=== PATIENT | female | born 1935 | race Caucasian/White ===

== ENCOUNTER → 2017-10-19 | Outpatient (CLI) | payer MEDICARE ==
[~2017-10-19] MED LIST: ASPIR-LOW81 MG PO; ASPIRIN325 PO; D3 + K2 DOTS 11 EACH PO; ECONOPRED PLUS10 M1 OPHTHALMIC; FISHOIL; FISHOIL PO; FLOXIN OTI0.3 %/5 M1 OPHTHALMIC; FOLBIC RF TABL1 EACH PO; HAIR, SKIN & N1 EAC1 PO; HYDROCODON-ACE1 EAC7 PO; HYDROCODONE-AP1 EAC6 PO; KETOROLAC 0.5% E5 ML OPHTHALMIC; KLOR-CON 1010 MEQ PO; LISINOPRIL20 MG PO; MECLIZINE 25 MG25 M1 PO; MELOXICAM7.5 MG PO; MICROZIDE12.5 MG PO; MULTIVITAMIN W1 EAC5 PO; NEXIUM40 MG PO; NIACIN SR 250250 MG PO; NOLVADEX20 MG PO; ONDANSETRON HCL4 M2 PO; PRADAXA150 MG PO; SORINE 80 MG TA80 M1 PO; SOTALOL80 MG PO; TOPROL XL25 MG PO; TRAMADOL 50 MG50 MG PO; TRIAMTERENE-HC1 EAC2 PO; ULTRAM 50MG TAB50 MG PO; ZOFRAN ODT4 MG PO
== END ==
LOC: M.RAD 11:24
DX: M81.0 Age-related osteoporosis without current pathological fracture (principal); M25.552 Pain in left hip; M25.562 Pain in left knee; S32.010S Wedge compression fracture of first lumbar vertebra, sequela; Z88.5 Allergy status to narcotic agent; Z88.0 Allergy status to penicillin; X58.XXXS Exposure to other specified factors, sequela

== ENCOUNTER 2017-10-20 09:44 | Inpatient (IN) | payer MEDICARE ==
[~2017-10-20] VITALS: Ht 149.9 cm; Wt 54.4 kg
[~2017-10-20 09:44] MED LIST changes: -MICROZIDE12.5 MG PO; -NEXIUM40 MG PO; -ULTRAM 50MG TAB50 MG PO
[2017-10-20 09:55] VITALS: BP 146/58
[2017-10-20] MEDS ORDERED: MICROZIDE12.5 MG PO (10:00)
[2017-10-20] MEDS ORDERED: ULTRAM 50MG TAB50 MG PO (10:01)
[2017-10-20 10:27] LABS: ABSOLUTE EOSINOPHILS 0.1 thou/uL (0.0-0.7); ABSOLUTE LYMPHOCYTES 1.9 thou/uL (0.8-5.3); ABSOLUTE MONOCYTES 0.5 thou/uL (0.0-1.2); ABSOLUTE NEUTROPHILS 7.7 thou/uL (1.6-8.1); BASOPHILS 0.5 %; EOSINOPHILS 0.5 %; HEMATOCRIT 25.6 % (37.0-47.0); HEMOGLOBIN 8.7 gm/dL (12.0-15.0); LYMPHOCYTES 18.8 %; MCH 30.3 pg (26.0-34.0); MCV 89.3 fL (80.0-100.0); MONOCYTES 5.2 %; MPV 8.6 fl. (7.2-11.1); NUCLEATED RBCS 0 /100WBC; PLATELET COUNT* 194 thou/uL (150-400); RBC 2.87 mil/uL (4.20-5.00); RDW-CV 13.4 % (10.5-14.5); WBC 10.2 thou/uL (4.0-11.0)
[2017-10-20 10:32] LABS: URINE BILIRUBIN NEGATIVE (Negative); URINE BLOOD NEGATIVE (Negative); URINE CLARITY CLEAR; URINE COLOR YELLOW; URINE GLUCOSE-RANDOM NEGATIVE (Negative); URINE KETONES NEGATIVE (Negative); URINE LEUKOCYTES-REFLEX NEGATIVE (Negative); URINE NITRITE-REFLEX NEGATIVE (Negative); URINE PROTEIN NEGATIVE (Negative); URINE SPECIFIC GRAVITY 1.015 (1.005-1.030); URINE UROBILINOGEN 0.2 E.U./dl (0.2-1.0)
[2017-10-20 10:35] LABS: ANION GAP 5 mmol/L (7-16); BUN 45 mg/dL (7-18); CALCIUM 9.1 mg/dL (8.5-10.1); CHLORIDE 100 mmol/L (98-107); CO2 30 mmol/L (21-32); CREATININE 0.9 mg/dL (0.6-1.3); GLUCOSE 125 mg/dL (70-99); POTASSIUM 3.9 mmol/L (3.5-5.1); SODIUM 135 mmol/L (136-145)
[2017-10-20 10:47] LABS: ALBUMIN 3.1 g/dL (3.4-5.0); ALKALINE PHOSPHATASE 45 U/L (46-116); LIPASE 161 U/L (73-393); NT-PRO BRAIN NAT PEPTIDE 103 pg/mL (<300); SGOT 15 U/L (15-37); SGPT 16 U/L (30-65); TOTAL BILIRUBIN 0.2 mg/dL (<0.1-1.0); TOTAL PROTEIN 6.4 g/dL (6.4-8.2); TROPONIN-I LEVEL <0.06 ng/mL (<0.06)
[2017-10-20 12:18] VITALS: BP 133/76
[2017-10-20 12:30] VITALS: BP 125/52
[2017-10-20 15:25] VITALS: BP 119/56; BP 122/96; BP 132/49; BP 92/64
[2017-10-20 16:00] VITALS: BP 161/62
--- NOTE | 2017-10-20 18:01 | NUR ---
pt arrived to room 224 at approx 1240, pt oriented to room and staff. pt denies pain, states she had a bm this am that was black, pt sats 100% on RA, VSS. Admission Hx and assesment done as charted. Pt NPO for GI consult Recieved orders for 1 unit PRBC's. Spoke to Dr Lopez, orders for EGD tomorrow recieved. pt updated on plan of care. was able to tolerate clear liquids for dinner. fall precatuions in place, call light in reach. pt uses it appropriatly. will continue with plan of care .
[2017-10-20 19:43] LABS: HEMATOCRIT 24.3 % (37.0-47.0); HEMOGLOBIN 8.3 gm/dL (12.0-15.0); MCH 30.9 pg (26.0-34.0); MCHC 34.3 g/dL (28.0-37.0); MPV 8.8 fl. (7.2-11.1); RBC 2.7 mil/uL (4.20-5.00); RDW-CV 13.5 % (10.5-14.5); WBC 8.1 thou/uL (4.0-11.0)
[2017-10-20 20:00] VITALS: BP 122/56
[2017-10-21] VITALS (9 sets, daily range): BP systolic 92–147; BP diastolic 44–62
[2017-10-21 05:30] LABS: HEMATOCRIT 20.6 % (37.0-47.0); HEMOGLOBIN 7.1 gm/dL (12.0-15.0); MCH 30.6 pg (26.0-34.0); MCHC 34.3 g/dL (28.0-37.0); MCV 89.4 fL (80.0-100.0); MPV 8.9 fl. (7.2-11.1); RBC 2.31 mil/uL (4.20-5.00); RDW-CV 13.6 % (10.5-14.5); WBC 9.5 thou/uL (4.0-11.0)
[2017-10-21 05:42] LABS: CALCIUM 8.1 mg/dL (8.5-10.1); CREATININE 0.7 mg/dL (0.6-1.3); MAGNESIUM 1.6 mg/dL (1.8-2.4); POTASSIUM 3.8 mmol/L (3.5-5.1)
--- NOTE | 2017-10-21 06:13 | NUR ---
PATIENT RESTED IN BED, PATIENT DID NOT SHOW SIGNS OF DISTRESS. HGB IS 7.1 AND MAG IS LOW, DOCTOR NOTIFIED. PATIENT EGD TODAY, NO ACUTE CHANGES. FALL PRECAUTIONS IN PLACE, BED ALARM ON, HOURLY ROUNDING OBSERVED, CALL LIGHT WITHIN REACH.
--- NOTE | 2017-10-21 07:07 | NUR ---
DOCTOR CALLED RECEIVED AND ORDER 1 UNIT OF BLOOD AND MAG PROTOCOL, SEE ORDERS.
--- NOTE | 2017-10-21 08:00 | NUR ---
ASSUMED PT. CARE AND RECEIVED REPORT AT 0730. PT A/OX4, VSS, MONITOR ON TRACING SR. PT. C/O MINOR ABDOMINAL PAIN, STATES BETTER THIS MORNING THAN DURING THE NIGHT. ON RA @ 98%. PT. LOOKS PALE IN COLOR. AWAITING 1 UNIT OF PRBC TO BE READY FOR INFUSION. PT. REPORTS DARK TARRY STOOL THIS MORNING. FULL ASSESSMENT COMPLETED, REFER TO CHARTING. CALL LIGHT IN REACH, WILL CONTINUE WITH PLAN OF CARE.
--- NOTE | 2017-10-21 11:15 | NUR ---
PT. RETURNED FROM EGD, TOLERATED WELL. C/O GENERAL ABD. PAIN. PT. GIVEN ZOFRAN IV, PO PAIN MED AND A.M. MEDS. TOLERATED FULL LIQUID DIET WELL. 1 UNIT PRBC STARTED PER ORDERS. CONTINUE WITH PROTONIX GTT PER ORDERS.
--- NOTE | 2017-10-21 15:58 | NUR ---
MET WITH PT TO DISCUSS HOME SITUATION/DC PLANNING. PT LIVES ALONE, HAS SUPPORTIVE PIERCING SPECIALIST AND HIS ACROSS THE STREET. SHE ALSO HAS A FRIEND/CAROLINA SULLIVAN WHO IS SUPPORTIVE. PT HAS NO CHILDREN BUT HAS STEP-CHILDREN WHO ARE SUPPORTIVE. SHE ALSO HAS 2 BROTHERS. PT STATES SHE IS INDEPENDENT WITH ADLS, USES [facility] AND HAS 2 BSC THAT SHE USES IN SHOWER AND BY HER BED. SHE HAS HAD HH WITH [facility] HOME IN THE PAST. SHE DOESN'T HAVE A DPOA. GAVE ED AND INFO. SHE STATES SHE THINKS SHE WOULD LIKE HER FRIEND CAROLINA TO BE HER DPOA BUT WANTS TO TALK IT OVER WITH HER AND HAVE HER ASSIST WITH FILLING IT OUT. PT PLANS TO RETURN HOME AT DC. WILL FOLLOW
--- NOTE | 2017-10-21 17:22 | EKG ---
[place] [address] ELECTROCARDIOGRAM REPORT Name: SOMMER TO Room: [address] ADM IN M.R.#: [id number] Admission: 10/20/17 Attend Phys: Ish Stephen, Discharge: Date of : 33 Report #: [id number] THIS REPORT FOR: //name// [facility] ED Test Date: 2017-10-20 Test Time: 10:18:51 Pat Name: SOMMER TO Department: Room: [facility] Gender: F Whiting Can Worker: Anthony ORDOÑEZ : 1935 Requested By: Matthew Garcia Order Number: [id number] MD: Nakul Carlson Measurements Intervals [place] Rate: 69 P: 25 [place]: 189 QRS: -45 QRSD: 103 T: 67 QT: 422 QTc: 452 Interpretive Statements Sinus rhythm Left anterior fascicular block Compared to ECG 04/15/2015 23:47:42 Left anterior fascicular block now present Left-axis deviation no longer present Electronically Signed On 10-21-2017 17:22:10 CDT by Nakul Carlson [email or web address] <ELECTRONICALLY SIGNED> By: Nakul Carlson MD, FACC 10/21/17 1722 1018 1018 Nakul Carlson MD, FAC /EPI
--- NOTE | 2017-10-21 19:04 | NUR ---
PT. TOLERATED BLOOD TRANSFUSION WELL. HAS NOT HAD ANY FURTHER STOOLS THIS SHIFT. CONTINUES ON FULL LIQUID DIET, DENIES NAUSEA OR PAIN CURRENTLY. PT. WITH MULTIPLE FRIEND VISITORS TODAY. HOURLY ROUNDING COMPLETED THROUGH OUT THE DAY FOR PT. SAFETY. FALL PRECAUTIONS REMAIN IN PLACE.
[2017-10-22] VITALS (7 sets, daily range): BP systolic 107–168; BP diastolic 33–61
--- NOTE | 2017-10-22 03:13 | NUR ---
ASSUMED PT CARE AT 19;15 RECEIVE REPORT FROM NURSE. PT IS ALERT AWAKE ORIENTED X 4. APPEARS PALE IN CALOR. SKIN IS COOL. ASSESSEMNT PERFORMED, REFER TO CHART. VITAL SIGNS WITHIN NORMAL LIMIT. NO COMPLAIN OF PAIN AT THIS TIME. SINUS RYTHM ON THE MONITOR. PT HAD A SMALL BOWEL MVNT AT AROUND 0130 AM. BOWEL APPEARS DARK WITH STRINGE OF BLOOD. CBC ORDERED IN THE MORNING. NO ACUTE BLEEDING NOTICED. PT WANTS TO GET SOME REST. NO DIZINESS, SKIN IS JUST PALE AND COOL TO TOUCH. PROTONIX DRIP INFUSING AT 20CC/HR NS INFUSING WELL. WILL CONTINUE TO MONITOR.,
[2017-10-22 05:21] LABS: ABSOLUTE BASOPHILS 0.1 thou/uL (0.0-0.2); ABSOLUTE EOSINOPHILS 0.3 thou/uL (0.0-0.7); ABSOLUTE LYMPHOCYTES 2.1 thou/uL (0.8-5.3); ABSOLUTE MONOCYTES 0.7 thou/uL (0.0-1.2); ABSOLUTE NEUTROPHILS 9.1 thou/uL (1.6-8.1); BASOPHILS 0.4 %; EOSINOPHILS 2.6 %; HEMATOCRIT 20.4 % (37.0-47.0); LYMPHOCYTES 16.9 %; MCHC 33.8 g/dL (28.0-37.0); MCV 91.7 fL (80.0-100.0); MONOCYTES 5.6 %; MPV 8.9 fl. (7.2-11.1); NUCLEATED RBCS 0 /100WBC; PLATELET COUNT* 118 thou/uL (150-400); POLYS 74.5 %; RBC 2.22 mil/uL (4.20-5.00); RDW-CV 13.8 % (10.5-14.5); WBC 12.2 thou/uL (4.0-11.0)
[2017-10-22 05:26] LABS: HEMOGLOBIN 6.9 gm/dL (12.0-15.0)
[2017-10-22 05:48] LABS: CALCIUM 8.1 mg/dL (8.5-10.1); CREATININE 0.7 mg/dL (0.6-1.3); MAGNESIUM 1.7 mg/dL (1.8-2.4); POTASSIUM 3.9 mmol/L (3.5-5.1)
--- NOTE | 2017-10-22 08:10 | NUR ---
ASSUMED PT. CARE AND RECEIVED REPORT AT 0730. PT A/OX4, VSS, MONITOR ON TRACING SR. PT. DENIES CURRENT PAIN. REPORTS SOB WITH EXERTION AND WEAKNESS. ON RA @ 95%. FULL ASSESSMENT COMPLETED, REFER TO CHARTING. PT. AWARE OF PLAN FOR 2 UNITS OF BLOOD TODAY. CALL LIGHT IN REACH, WILL CONTINUE WITH PLAN OF CARE.
--- NOTE | 2017-10-22 18:49 | NUR ---
PT. TOLERATED BLOOD TRANSFUSIONS WITHOUT DIFFICULTY. HAS HAD 1 LARGE BOWEL MOVEMENT THAT WAS BLACK AND TARRY AND MULTIPLE SMALL OTHERS TODAY. NO NEW COMPLAINTS. [place] [facility] [place] AT THIS TIME. HOURLY ROUNDING COMPLETED THROUGH OUT THE DAY FOR PT. SAFETY.
[2017-10-23] VITALS: BP 133/53
--- NOTE | 2017-10-23 02:07 | NUR ---
ASSUMED PT CARE AT 19:15 PT IS ALERT AWAKE ORIENTED X 4 VITAL SIGNS WITHIN NORMAL LIMIT. SINUS ISAAC ON THE MONITOR HR STAYS IN THE HIGH 50S. NO COMPLAIN OF PAIN AT THIS MOMENT PT STATED THAT SHE HAS GOT SOME TRAMADOL EARLIER AND SHE HAS NOT BEEN IN PAIN SINCE THEN. IV FLUID IS INFUSING IN LEFT FOREARM LINE AND PROTONIX DRIP IS ON AT 20CC/HR. ASSESSMENT PERFOREMED. REFER TO CHART. SKIN IS WARMER AND OF APPROPRIATE COLOR. PT IS CURRETNLY RESITNG IN BED MADE COMFORTABLE. CALL LIGHT AT REACH.. WILL CONTINUE TO MONITOR.
[2017-10-23 04:12] VITALS: BP 127/48
[2017-10-23 05:01] LABS: HEMATOCRIT 24.5 % (37.0-47.0); HEMOGLOBIN 8.5 gm/dL (12.0-15.0); MCH 31.5 pg (26.0-34.0); MCHC 34.7 g/dL (28.0-37.0); MPV 8.9 fl. (7.2-11.1); RBC 2.7 mil/uL (4.20-5.00); RDW-CV 13.8 % (10.5-14.5); WBC 8.4 thou/uL (4.0-11.0)
[2017-10-23 05:16] LABS: ALBUMIN 2.3 g/dL (3.4-5.0); CALCIUM 7.7 mg/dL (8.5-10.1); CREATININE 0.6 mg/dL (0.6-1.3); POTASSIUM 3.9 mmol/L (3.5-5.1); TOTAL BILIRUBIN 0.3 mg/dL (<0.1-1.0); TOTAL PROTEIN 4.5 g/dL (6.4-8.2)
[2017-10-23 07:45] VITALS: BP 146/66
--- NOTE | 2017-10-23 07:45 | NUR ---
ASSUMED PT. CARE AND RECEIVED REPORT AT 0730. PT A/OX4, VSS, MONITOR ON TRACING SR. PT. STATES SHE HAS ACHINESS IN HIPS DUE TO LAYING DOWN, HOWEVER DENIES FURTHER PAIN. ON RA @ 99%. FULL ASSESSMENT COMPLETED, REFER TO JUDY. PT. ASSISTED TO RECLINER. STATES SHE IF FEELING BETTER TODAY, NOT 100%, BUT BETTER. CALL LIGHT IN REACH, WILL CONTINUE WITH PLAN OF CARE.
--- NOTE | 2017-10-23 11:38 | NUR ---
CONTINUE TO FOLLOW. PT UP IN CHAIR, STATES MAY BE ABLE TO GO HOME TOMORROW. PT DENIES NEEDS AT THIS TIME. SHE IS STILL TALKING WITH HER FRIEND/KATHYRN ABOUT FILLING OUT DPOA. STATES SHE MAY GO TO A CREATIVE STRATEGIST. EXPLAINED TO HER THAT IF SHE INDEED WANTS HER FRIEND TO BE HER DPOA, WOULD NEED TO HAVE THE FORM FILLED OUT OTHERWISE HER FRIEND WOULD NOT BE ABLE TO MAKE HER DECISIONS, WOULD FALL TO FAMILY. SHE VOICED UNDERSTANDING. WILL FOLLOW
[2017-10-23 11:55] VITALS: BP 131/75
--- NOTE | 2017-10-23 15:01 | CON ---
[address] [address] CONSULTATION Name: SOMMER TO Room: [address] IN .R.#: [id number] Admission: 10/20/17 Attend Phys: Ish Stephen, Discharge: Date of : 33 Report #: [id number] THIS REPORT FOR: //name// CC: Oksana Stephen DATE OF SERVICE: 10/21/2017 REASON FOR CONSULT: Anemia and melenic stool. HISTORY OF PRESENT ILLNESS: This is an 82-year-old female who takes a full dose aspirin for history of AFib and presents with a couple of days of melenic stool and anemia. The patient also complains of shortness of air for a month. She denies GERD or dysphagia, but complains of epigastric pain both in mid and left upper quadrant. PAST MEDICAL HISTORY: Significant for history of breast cancer, status post right mastectomy, hypertension, gallbladder disease, status post cholecystectomy, appendectomy, history of AFib and on full dose aspirin, back surgery, left knee surgery. ALLERGIES: SIGNIFICANT TO PENICILLIN AND CODEINE. SOCIAL HISTORY: The patient lives at home. Denies tobacco or alcohol use. FAMILY HISTORY: Significant for brother having history of peptic ulcer disease. PHYSICAL EXAMINATION: VITAL SIGNS: Reveals blood pressure of 147/49, respirations 16, pulse 76, temperature 98.8. LUNGS: Clear. CARDIOVASCULAR: Regular rate. ABDOMEN: Soft, tender to palpation in the epigastric region. Bowel sounds are positive. NEUROLOGIC: The patient is alert, oriented x 3. LABORATORY DATA: Reveal sodium of 142, potassium 3.8, BUN is 34, creatinine 0.7, AST is 15, ALT 16 with alkaline phosphatase of 45, total bilirubin is 0.2. WBC is 9.5 with hemoglobin of 7.1, down from 8.3 on admission. Platelet is 142. IMAGING: Chest x-ray was obtained, which showed no acute process. ASSESSMENT AND PLAN: The patient with anemia, melenic stool and history of taking full dose aspirin. We will perform upper endoscopy to rule out gastroduodenal ulcer versus gastritis. If this was negative, we will consider a colonoscopy since the patient has not had a colonoscopy for the past [place] [address] CONSULTATION Name: SOMMER TO Room: [address] [place] [facility]#: [id number] Admission: 10/20/17 Attend Phys: Ish Stephen, Discharge: Date of : 34 Report #: [id number] Meanwhile, the patient is on Protonix drip, which we will continue. We will make further recommendation once her upper endoscopy is complete. <ELECTRONICALLY SIGNED> By: Porter Lopez MD 10/23/17 1501 0855 1200Farid Nellie Lopez MD /nt
[2017-10-23 15:16] VITALS: BP 125/50
[2017-10-23 16:08] LABS: HEMOGLOBIN 9.7 gm/dL (12.0-15.0)
--- NOTE | 2017-10-23 19:03 | NUR ---
PT. PROGRESSING TOWARDS GOALS. UP AD HAYLEY IN ROOM AND AMBULATED HALLS WELL. PT. REPORTS 2 STOOLS TODAY, REMAIN BLACK AND TARRY. ANTICIPATE DC TOMORROW IF LABS REMAIN STABLE. PT. STATES SHE IS FEELING MUCH BETTER TODAY. HOURLY ROUNDING COMPLETED THROUGH OUT THE DAY FOR PATIENT SAFETY.
[2017-10-23 20:00] VITALS: BP 156/55
[2017-10-24 00:13] VITALS: BP 140/61
--- NOTE | 2017-10-24 01:30 | NUR ---
ASSUMED PT CARE AT 1930. PATIENT IS ALERT AWAKE ORIENTED X 4 RESTING IN BED. CONCERN ABOUT DISCHARGE PLANNING STATED THAT SHE WOULD CONSIDER HOME HEALTH CARE SINCE SHE LIVES ON HER OWN AND IS SCARED THAT SHE WILL START BLLEDING AGAIN. CASE MANAGEMENT CONSULT ORDERED BY DAY SHIFT NURSE. BESIDE THAT NO COMPLAIN OF PAIN. ASSESSMENT PERFOREMED. REFER TO CHART. IV LINE IS PATENT SALINE LOCK. MEDICATIONS WERE ADMINISTERED PT WAS MADE COMFORTABLE WARM BLANKET PROVIDED . PT IS CURRENTLY SLEEPING.
[2017-10-24 03:36] VITALS: BP 150/55
[2017-10-24 05:47] LABS: HEMATOCRIT 26.2 % (37.0-47.0); HEMOGLOBIN 9.2 gm/dL (12.0-15.0)
[2017-10-24 08:00] VITALS: BP 150/73
[2017-10-24] MEDS ORDERED: NEXIUM40 MG PO (10:02)
[2017-10-24 10:19] VITALS: BP 150/55
--- NOTE | 2017-10-24 10:27 | NUR ---
ORDERS NOTED FOR DC HOME WITH HH. MET WITH PT, SHE WOULD LIKE TO USE [facility] AT HOME AND HAVE 'MARYY'. CALLED AND FAXED DC ORDERS TO [facility]. PT DENIES OTHER NEEDS
--- NOTE | 2017-10-24 11:25 | NUR ---
ASSUMED CARE OF PATIENT THIS AM AT 0730. PATIENT IS ALERT AND ORIENTED X 4. SHE C/O GENERALIZED PAIN TODAY. PATIENT MEDICATED FOR PAIN X 1 PO. PATIENT HAS BEEN UP IN THR ROOM INDEPENDANTLY. TELE SHOWS SR. SEALS IN TO ROUND AND DISCHARGE ORDERS WRITTEN. SALINE LOCK AND TELE MONITOR DISCONTINUED.
== END 2017-10-24 12:17 | disposition home health service (06) | DRG 813 ==
LOC: M.ERS 09:44 → M.2W 11:17 → M.TBA-ER 11:17 → M.2W 12:31
PROVIDERS: Emergency Medicine; Internal Medicine; Internal Medicine Gastroenterology; ADMIT Family Medicine
PROC: 30233N1 Transfusion of Nonautologous Red Blood Cells into Peripheral Vein, Percutaneous Approach (ICD-10-PCS; 2017-10-20)
PROC: 0DJ08ZZ Inspection of Upper Intestinal Tract, Via Natural or Artificial Opening Endoscopic (ICD-10-PCS; principal; 2017-10-21)
DX: D68.32 Hemorrhagic disorder due to extrinsic circulating anticoagulants (principal); K26.0 Acute duodenal ulcer with hemorrhage; D62 Acute posthemorrhagic anemia; I48.91 Unspecified atrial fibrillation; K44.9 Diaphragmatic hernia without obstruction or gangrene; K25.9 Gastric ulcer, unspecified as acute or chronic, without hemorrhage or perforation; G89.29 Other chronic pain; Z90.11 Acquired absence of right breast and nipple; Z90.710 Acquired absence of both cervix and uterus; Z87.891 Personal history of nicotine dependence; Z90.49 Acquired absence of other specified parts of digestive tract; Z79.82 Long term (current) use of aspirin; Z85.3 Personal history of malignant neoplasm of breast; Z79.899 Other long term (current) drug therapy; Z88.0 Allergy status to penicillin; Z88.5 Allergy status to narcotic agent; Z83.79 Family history of other diseases of the digestive system; Z82.49 Family history of ischemic heart disease and other diseases of the circulatory system

== ENCOUNTER → 2017-12-28 | Outpatient (CLI) | payer MEDICARE ==
[~2017-12-28] MED LIST changes: +BENTYL 10 MG CA10 M1 PO; +GLUCOSAMINE-MS1 EAC2 PO; +MICROZIDE12.5 MG PO; +NEXIUM40 MG PO; +PROTONIX40 M1 PO; +TUMS PO; +ULTRAM 50MG TAB50 MG PO; +UNICOMPLEX M TA1 TA1 PO
== END ==
LOC: M.LAB 02:34
DX: Z01.812 Encounter for preprocedural laboratory examination (principal)

== ENCOUNTER 2018-05-29 09:40 | Inpatient (IN) | payer MEDICARE ==
[~2018-05-29] VITALS: Ht 149.9 cm; Wt 51.7 kg
--- NOTE | ~2018-05-29 | PROC ---
[address] [address] PROCEDURE REPORT Name: SOMMER TO Room: [address] IN M.R.#: [id number] Admission: 05/29/18 Attend Phys: Aleah Perez Discharge: 05/30/18 Date of : 33 Report #: [id number] THIS REPORT FOR: //name// For GI report, please see the Provation report in Perceptive 7 content. By: 1401Medical Records Staff PETER /SAVI
--- NOTE | ~2018-05-29 | CON ---
[address] [address] CONSULTATION Name: SOMMER TO Room: [address] IN M.R.#: [id number] Admission: 05/29/18 Attend Phys: Aleah Perez Discharge: 05/30/18 Date of : 34 Report #: [id number] THIS REPORT FOR: //name// CC: Oksana Adelaida Madrigal DATE OF SERVICE: 05/30/2018 HISTORY OF PRESENT ILLNESS: This is a pleasant 82-year-old female with past medical history of hypertension, a-fib, cholecystectomy and appendectomy presenting with abdominal pain. The patient reports that the abdominal pain started yesterday, was severe, 10/10 in intensity, located in the upper abdomen. The patient does not recollect any particular aggravating or alleviating factors. The pain persisted for several hours, which prompted the hospital visit. The pain has since subsided and the patient is currently pain free. She reports associated nausea during the episode of pain, but denies any vomiting. The patient denies any fevers, chills, hematemesis, hematochezia or difficulty swallowing. PAST MEDICAL HISTORY: The patient reports history of a-fib, hypertension and irritable bowel syndrome. PAST SURGICAL HISTORY: The patient had right-sided mastectomy, had hysterectomy, cholecystectomy and appendectomy. SOCIAL HISTORY: The patient denies recreational drug use or alcohol use, quit smoking, but she has a 59-fxvd-gldy history of smoking. FAMILY HISTORY: There is no family history of colorectal or gastric cancer. REVIEW OF SYSTEMS: A comprehensive 10-point review of systems is negative except for what was mentioned in the HPI. PHYSICAL EXAMINATION: VITAL SIGNS: Temperature 36.6, pulse rate 64, respirations 16, blood pressure 137/55. GENERAL: The patient is alert, awake, oriented x 3. HEENT: Pupils are equal, round, reactive to light and accommodation. Mucous membranes are moist. There is no congestion. LUNGS: Clear to auscultation bilaterally. CARDIOVASCULAR: Rate and rhythm regular, S1, S2 present. ABDOMEN: Soft. There is no distention, guarding or rigidity. No tenderness. EXTREMITIES: Warm, well perfused. No edema. NEUROLOGIC: There is no focal neurological deficit. SKIN: [place] [address] CONSULTATION Name: SOMMER TO Room: [address]#: [id number] Admission: 05/29/18 Attend Phys: Aleah Perez Discharge: 05/30/18 Date of : 33 Report #: [id number] LABORATORY DATA: Hemoglobin 13.0, hematocrit 38.7, platelet count 184, WBC count 6.9. Sodium 131, potassium 3.9, chloride 95, BUN 13, creatinine 0.9, total bilirubin 0.3, AST 22, ALT 26, alkaline phosphatase 54, lipase 157. CT abdomen and pelvis did not demonstrate any evidence of inflammation or pancreatitis. ASSESSMENT AND PLAN: This is a very pleasant 82-year-old female with an episode of acute onset abdominal pain that is located in the epigastric region. The pain lasted for several hours before subsiding on its own. We will proceed with EGD to rule out peptic ulcer disease. Other recommendations will be based on results of EGD. By: 1833 2344Patrick Bagley MD /nt
[~2018-05-29 09:40] MED LIST changes: -BENTYL 10 MG CA10 M1 PO; -GLUCOSAMINE-MS1 EAC2 PO; -PROTONIX40 M1 PO; -TUMS PO; -UNICOMPLEX M TA1 TA1 PO
[2018-05-29 09:42] VITALS: BP 160/61
[2018-05-29] MEDS ORDERED: KLOR-CON 1010 MEQ PO (09:49)
[2018-05-29] MEDS ORDERED: TUMS PO (09:49)
[2018-05-29] MEDS ORDERED: UNICOMPLEX M TA1 TA1 PO (09:50)
[2018-05-29] MEDS ORDERED: GLUCOSAMINE-MS1 EAC2 PO (09:50)
[2018-05-29 10:14] LABS: ABSOLUTE EOSINOPHILS 0.1 thou/uL (0.0-0.7); ABSOLUTE LYMPHOCYTES 1.6 thou/uL (0.8-5.3); ABSOLUTE MONOCYTES 0.4 thou/uL (0.0-1.2); ABSOLUTE NEUTROPHILS 6.2 thou/uL (1.6-8.1); BASOPHILS 0.5 %; EOSINOPHILS 1.4 %; HEMATOCRIT 39.1 % (37.0-47.0); HEMOGLOBIN 13.1 gm/dL (12.0-15.0); MCH 29.7 pg (26.0-34.0); MCHC 33.5 g/dL (28.0-37.0); MCV 88.8 fL (80.0-100.0); MONOCYTES 4.8 %; MPV 7.3 fl. (7.2-11.1); NUCLEATED RBCS 0 /100WBC; PLATELET COUNT* 201 thou/uL (150-400); POLYS 74.3 %; RDW-CV 13.8 % (10.5-14.5); WBC 8.4 thou/uL (4.0-11.0)
[2018-05-29 10:24] LABS: ANION GAP 9 mmol/L (7-16); BUN 13 mg/dL (7-18); CALCIUM 9.1 mg/dL (8.5-10.1); CHLORIDE 95 mmol/L (98-107); CO2 27 mmol/L (21-32); CREATININE 0.9 mg/dL (0.6-1.3); GLUCOSE 111 mg/dL (70-99); POTASSIUM 3.9 mmol/L (3.5-5.1); SODIUM 131 mmol/L (136-145)
[2018-05-29 10:25] LABS: APTT 28.7 Seconds (25.0-31.3)
[2018-05-29 10:41] LABS: ALBUMIN 3.7 g/dL (3.4-5.0); ALKALINE PHOSPHATASE 54 U/L (46-116); CK-MB MASS 2.1 ng/mL (<0.5-3.6); LIPASE 157 U/L (73-393); MAGNESIUM 1.8 mg/dL (1.8-2.4); NT-PRO BRAIN NAT PEPTIDE 121 pg/mL (<300); SGOT 22 U/L (15-37); SGPT 26 U/L (30-65); TOTAL BILIRUBIN 0.3 mg/dL (<0.1-1.0); TOTAL PROTEIN 7.5 g/dL (6.4-8.2); TROPONIN-I LEVEL <0.06 ng/mL (<0.06)
[2018-05-29 14:14] LABS: URINE BILIRUBIN NEGATIVE (Negative); URINE BLOOD TRACE (Negative); URINE CLARITY CLEAR; URINE COLOR YELLOW; URINE GLUCOSE-RANDOM NEGATIVE (Negative); URINE KETONES NEGATIVE (Negative); URINE LEUKOCYTES-REFLEX NEGATIVE (Negative); URINE NITRITE-REFLEX NEGATIVE (Negative); URINE PROTEIN NEGATIVE (Negative); URINE SPECIFIC GRAVITY <= 1.005 (1.005-1.030); URINE UROBILINOGEN 0.2 E.U./dl (0.2-1.0)
[2018-05-29 14:22] LABS: URINE RBC 0-2 Rare /HPF (0-2)
[2018-05-29 16:00] VITALS: BP 137/55
--- NOTE | 2018-05-29 16:47 | EKG ---
[place] [address] ELECTROCARDIOGRAM REPORT Name: SOMMER TO Room: [address] ADM IN M.R.#: [id number] Admission: 05/29/18 Attend Phys: Aleah Perez Discharge: Date of : 33 Report #: [id number] THIS REPORT FOR: //name// [facility] ED Test Date: 2018-05-29 Test Time: 09:44:07 Pat Name: SOMMER TO Department: Room: [facility] Gender: F Taker Down: Kei RAUSCH : 1935 Requested By: Stanislaw Appiah Order Number: [id number] MD: Nakul Carlson Measurements Intervals [place] Rate: 62 P: 46 ME: 190 QRS: -46 QRSD: 109 T: 26 QT: 426 QTc: 433 Interpretive Statements Sinus rhythm Left anterior fascicular block Abnormal R-wave progression, late transition Probable left ventricular hypertrophy Baseline wander in lead(s) V4 Compared to ECG 10/20/2017 10:18:51 No significant changes Electronically Signed On 05-29-2018 16:47:08 FLOAT TENDER by Nakul Carlson [email or web address] <ELECTRONICALLY SIGNED> By: Nakul Carlson MD, FACC 05/29/18 1647 0944 0944 Nakul Carlson MD, FACC /EPI
[2018-05-30 08:10] VITALS: BP 174/65
[2018-05-30 10:04] VITALS: BP 137/55
[2018-05-30 10:22] LABS: HEMATOCRIT 38.7 % (37.0-47.0); MCH 29.9 pg (26.0-34.0); MCHC 33.5 g/dL (28.0-37.0); MCV 89.1 fL (80.0-100.0); MPV 7.2 fl. (7.2-11.1); RBC 4.34 mil/uL (4.20-5.00); RDW-CV 13.6 % (10.5-14.5); WBC 6.9 thou/uL (4.0-11.0)
[2018-05-30 11:36] VITALS: BP 137/55
[2018-05-30 12:45] VITALS: BP 137/55
[2018-05-30] MEDS ORDERED: BENTYL 10 MG CA10 M1 PO (12:50)
[2018-05-30] MEDS ORDERED: PROTONIX40 M1 PO (12:57)
== END 2018-05-30 13:10 | disposition still patient (30) | DRG 392 ==
LOC: M.ERS 09:40 → M.ORTHSURG 12:55 → M.TBA-ER 12:55 → M.ORTHSURG 15:01
PROVIDERS: Family Medicine; Internal Medicine Gastroenterology; ADMIT Internal Medicine
PROC: 0DJ08ZZ Inspection of Upper Intestinal Tract, Via Natural or Artificial Opening Endoscopic (ICD-10-PCS; principal; 2018-05-30)
DX: K29.70 Gastritis, unspecified, without bleeding (principal); E87.1 Hypo-osmolality and hyponatremia; I48.91 Unspecified atrial fibrillation; I10 Essential (primary) hypertension; K58.9 Irritable bowel syndrome, unspecified; K20.9 Esophagitis, unspecified; Z90.49 Acquired absence of other specified parts of digestive tract; Z90.710 Acquired absence of both cervix and uterus; Z90.11 Acquired absence of right breast and nipple; Z79.899 Other long term (current) drug therapy; Z88.0 Allergy status to penicillin; Z87.891 Personal history of nicotine dependence; Z87.440 Personal history of urinary (tract) infections; Z87.19 Personal history of other diseases of the digestive system; Z88.5 Allergy status to narcotic agent

== ENCOUNTER → 2018-11-16 | Outpatient (CLI) | payer MEDICARE ==
[~2018-11-16] MED LIST changes: +BENTYL 10 MG CA10 M1 PO; +GLUCOSAMINE-MS1 EAC2 PO; +PROTONIX40 M1 PO; +TUMS PO; +UNICOMPLEX M TA1 TA1 PO
== END ==
LOC: M.RAD 10:25
DX: Z12.31 Encounter for screening mammogram for malignant neoplasm of breast (principal)

== ENCOUNTER 2020-02-20 17:34 | Emergency (ER) | payer MEDICARE ==
[~2020-02-20] VITALS: Ht 149.9 cm; Wt 52.2 kg
[2020-02-20] MEDS ORDERED: ELIQUIS2.5 MG PO (17:51)
[2020-02-20 18:41] LABS: ABSOLUTE BASOPHILS 0.1 thou/uL (0.0-0.2); ABSOLUTE EOSINOPHILS 0.2 thou/uL (0.0-0.7); ABSOLUTE LYMPHOCYTES 2.1 thou/uL (0.8-5.3); ABSOLUTE MONOCYTES 0.6 thou/uL (0.0-1.2); ABSOLUTE NEUTROPHILS 4.6 thou/uL (1.6-8.1); BASOPHILS 0.7 %; EOSINOPHILS 2.4 %; HEMATOCRIT 40.7 % (37.0-47.0); MCH 30.2 pg (26.0-34.0); MCHC 34.5 g/dL (28.0-37.0); MCV 87.4 fL (80.0-100.0); MONOCYTES 8.2 %; NUCLEATED RBCS 0 /100WBC; PLATELET COUNT* 204 thou/uL (150-400); POLYS 60.7 %; RBC 4.65 mil/uL (4.20-5.00); RDW-CV 13.6 % (10.5-14.5); WBC 7.6 thou/uL (4.0-11.0)
[2020-02-20 18:49] LABS: APTT 26.5 Seconds (25.0-31.3); PROTIME 10.6 Seconds (9.20-11.50)
[2020-02-20 18:50] LABS: CALCIUM 8.7 mg/dL (8.5-10.1); CREATININE 0.9 mg/dL (0.6-1.3); POTASSIUM 4.7 mmol/L (3.5-5.1)
[2020-02-20 19:00] LABS: ALBUMIN 3.6 g/dL (3.4-5.0); MAGNESIUM 1.9 mg/dL (1.8-2.4); TOTAL BILIRUBIN 0.3 mg/dL (<0.1-1.0); TOTAL PROTEIN 7.6 g/dL (6.4-8.2)
[2020-02-20 22:00] LABS: URINE BILIRUBIN NEGATIVE (Negative); URINE BLOOD TRACE (Negative); URINE CLARITY CLEAR; URINE COLOR YELLOW; URINE GLUCOSE-RANDOM NEGATIVE (Negative); URINE KETONES NEGATIVE (Negative); URINE LEUKOCYTES-REFLEX NEGATIVE (Negative); URINE NITRITE-REFLEX NEGATIVE (Negative); URINE PROTEIN NEGATIVE (Negative); URINE UROBILINOGEN 0.2 E.U./dl (0.2-1.0)
[2020-02-20 22:10] VITALS: BP 158/70
--- NOTE | 2020-02-21 14:01 | EKG ---
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: [facility] : 1935 Requested By: Dalia Lara Order Number: [id number] MD: Chilango Flannery Measurements Intervals [place] Rate: 63 P: 51 [place]: 191 QRS: -55 QRSD: 115 T: 11 QT: 442 QTc: 453 Interpretive Statements Sinus rhythm LAD, consider left anterior fascicular block Left ventricular hypertrophy Compared to ECG 05/29/2018 09:44:07 No significant changes Electronically Signed On 02-21-2020 14:01:22 CDT by Chilango Flannery [email or web address] <ELECTRONICALLY SIGNED> By: Chilango Flannery MD, [facility] 02/21/20 1401 1744 1744 Chilango Flannery MD, [facility] /EPI
--- NOTE | 2020-02-21 14:02 | EKG ---
[place] [address] ELECTROCARDIOGRAM REPORT Name: SOMMER TO Room: [facility]#: [id number] Admission: 02/20/20 Attend Phys: Discharge: 02/20/20 Date of : 33 Date of Service: 02/20/20 180 Report #: [id number] THIS REPORT FOR: //name// 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: Yeyo Clements : 1935 Requested By: Morteza Esquivel Order Number: [id number] MD: Chilango Flannery Measurements Intervals [place] Rate: 61 P: 49 [place]: 185 QRS: -51 QRSD: 108 T: -4 QT: 470 QTc: 474 Interpretive Statements Sinus rhythm Left anterior hemiblock Possible left ventricular hypertrophy Compared to ECG 05/29/2018 09:44:07 No significant change Electronically Signed On 02-21-2020 14:02:15 CDT by Chilango Flannery [email or web address] <ELECTRONICALLY SIGNED> By: Chilango Flannery MD, [facility] 02/21/20 1402 180 1803 Chilango Flannery MD, [facility] /EPI
== END 2020-02-20 22:10 | disposition home or self-care (01) ==
LOC: M.ERS 17:34
PROVIDERS: Emergency Medicine; Emergency Medicine Emergency Medical Services
DX: I48.91 Unspecified atrial fibrillation (principal); M79.89 Other specified soft tissue disorders; Z88.5 Allergy status to narcotic agent; Z88.0 Allergy status to penicillin; Z90.49 Acquired absence of other specified parts of digestive tract; Z90.710 Acquired absence of both cervix and uterus; Z90.11 Acquired absence of right breast and nipple

== ENCOUNTER → 2020-04-03 | Outpatient (CLI) | payer MEDICARE ==
[~2020-04-03] MED LIST changes: +ELIQUIS2.5 MG PO
--- NOTE | 2020-04-08 14:54 | CARDNUC ---
[place] [address] CARDIAC NUCLEAR IMAGING REPORT Name: SOMMER TO Room: [facility]#: [id number] Admission: 04/03/20 Attend Phys: Wendy Tracy RN Discharge: Date of : 33 Date of Service: 04/08/20 1454 Report #: [id number] THIS REPORT FOR: cc: Oksana Son Linda J. DO Park,Grady Pedroza MD ~ APPROVED REPORT Study performed: 04/03/2020 12:06:45 Indication: Chest pain Patient Location: Out-Patient Stress Tech: Lindsey Silvestre Stress Nurse: Sherrill June RN Ht: 4 ft 10 in Wt: 118 lbs BSA: 1.46 m2 BMI: 24.65 Medical History Medical History: HTN, Hyperlipidemia Medications: losartan, sotalol, amlodipine, hctz Allergies: sulfa, codeine, hydrocodone, penilillin Cardiac Risk Factors: Age, Past Smoker, HTN, Hyperlipidemia Exercise History: Sedentary Resting Data Rest SPECT myocardial perfusion imaging was performed in supine position 30 minutes following the intravenous injection of 9.7 mCi of Tc-99m Sestamibi. Time of rest injection: 10:20 The images were gated to evaluate regional wall motion and calculate left ventricular ejection fraction. Administration Route: IV Administration Site: Right Wrist Pharmacologic Stress Pharmacologic stress test was performed by injecting Regadenoson 0.4 mg IV push over 10-15 seconds immediately followed by the intravenous injection of 30.1 mCi of Tc-99m Sestamibi. Time of stress injection: 11:55 Administration Route: IV Administration Site: Right Wrist Heart Rate at time of stress injection: 75 bpm. Gated Stress SPECT was performed 45 [place] [address] CARDIAC NUCLEAR IMAGING REPORT Name: SOMMER TO Room: [facility]#: [id number] Admission: 04/03/20 Attend Phys: Wendy Tracy RN Discharge: Date of : 33 Date of Service: 04/08/20 1454 Report #: [id number]. The images were gated to evaluate regional wall motion and calculate left ventricular ejection fraction. Stress Test Details Stress Test: Pharmacologic stress testing performed using 0.4 mg of regadenoson per 5 mL given IV over 10 seconds. Reason for pharmacologic stress test: physical limitation. HR Max Heart Rate (APMHR): 135 bpm Resting HR: 55 bpm Target HR (85% APMHR): 114 bpm Max HR Achieved: 78 bpm % of APMHR: 57 Recovery HR: 73 bpm BP Resting BP: 206/84 mmHg Max BP: 188/84 mmHg Recovery BP: 193/82 mmHg ECG Resting ECG: Sinus Rhythm Stress ECG: Sinus Rhythm ST Change: Non-ischemic Clinical Reason for Termination: Completed protocol, Maximal effort, ST changes Nurse Comments pt uses cane to walk. is not aboe to walk on treadmill Study Quality Study: Good Study Data Post stress, the left ventricular ejection was 65%.. Perfusion Normal left ventricular perfusion. Normal perfusion on both the stress and rest images. Wall Motion Normal left ventricular wall [place] [address] CARDIAC NUCLEAR IMAGING REPORT Name: SOMMER TO Room: [facility]#: [id number] Admission: 04/03/20 Attend Phys: Wendy Tracy RN Discharge: Date of : 33 Date of Service: 04/08/201453 Report #: [id number] ECG Findings: negative for ischemia Clinical Findings: non-diagnostic Nuclear Findings: negative for ischemia Exercise Capacity: not assessed Left Ventricular Function: normal Risk Study: low This study is of low probability for inducible ischemia or prior infarct. Normal global and segmental LV systolic function. <ELECTRONICALLY SIGNED> By: Grady Vásquez MD 04/08/201453 53 53 Grady Vásquez MD /INF
== END ==
LOC: M.NUC 03-19 14:58 → M.CRD 03-30 09:00 → M.NUC 03-30 10:00 → M.CRD 09:00 → M.NUC 09:33
PROVIDERS: ATTEND Registered Nurse
DX: R07.9 Chest pain, unspecified (principal)

== ENCOUNTER → 2020-04-22 | Outpatient (CLI) | payer MEDICARE ==
--- NOTE | 2020-04-22 14:19 | 2DMMODE ---
[place] [address] 2 D/M-MODE ECHOCARDIOGRAM Name: WALTER TOZEYNEP Bullard Room: [facility]#: [id number] Admission: 04/22/20 Attend Phys: Alice Hart, Discharge: Date of : 33 Date of Service: 04/22/20 1419 Report #: [id number] THIS REPORT FOR: cc: Oksana Son,Oksana Lawrence,Ermias Tan MD [facility] ~ APPROVED REPORT Study performed: 04/22/2020 12:59:22 EXAM: Comprehensive 2D, Doppler, and color-flow Echocardiogram Patient Location: Out-Patient BSA: 1.44 HR: 58 bpm BP: 145/68 mmHg Other Information Study Quality: Excellent Indications Dyspnea 2D Dimensions IVSd: 11.35 (7-11mm) LVOT Diam: 19.58 (18-24mm) LVDd: 40.48 mm PWd: 11.21 (7-11mm) Ascending Ao: 32.70 (22-36mm) LVDs: 25.17 (25-40mm) Aortic Root: 28.03 mm Volumes Left Atrial Volume (Systole) LA ESV Index: 13.70 mL/m2 Aortic Valve AoV Peak Donte.: 1.11 m/s AO Peak Gr.: 4.95 mmHg LVOT Max P.31 mmHg AO Mean Gr.: 2.46 mmHg LVOT Mean P.93 mmHg LVOT Max V: 0.76 m/s AO V2 VTI: 25.21 cm LVOT Mean V: 0.43 m/s MARIN (VTI): 2.58 cm2 LVOT V1 VTI: 21.63 cm Mitral Valve E/A Ratio: 0.63 [place] [address] 2 D/M-MODE ECHOCARDIOGRAM Name: SOMMER TO Room: [facility]#: [id number] Admission: 04/22/20 Attend Phys: Alice Hart, Discharge: Date of : 33 Date of Service: 04/22/20 1419 Report #: [id number] MV Decel. Time: 290.07 ms MV E Max Donte.: 0.55 m/s MV PHT: 84.12 ms MVA (PHT): 2.62 cm2 TDI E/Lateral E': 9.17 E/Medial E': 7.86 Medial E' Donte.: 0.07 m/s Lateral E' Donte.: 0.06 m/s Pulmonary Valve PV Peak Donte.: 0.87 m/s PV Peak Gr.: 3.05 mmHg Tricuspid Valve RAP Estimate: 5.00 mmHg TR Peak Gr.: 21.04 mmHg RVSP: 26.04 mmHg PA Pressure: 26.04 mmHg Left Ventricle The left ventricle is normal size. There is normal LV segmental wall motion. Mild concentric left ventricular hypertrophy. Left ventricular systolic function is normal. The left ventricular ejection fraction is within the normal range. LVEF is 55-60%. Grade I - abnormal relaxation pattern. Right Ventricle The right ventricle is normal size. The right ventricular systolic function is normal. Atria The left atrium size is normal. The right atrium size is normal. Aortic Valve The aortic valve is normal in structure. Mild aortic regurgitation. There is no aortic valvular stenosis. Mitral Valve The mitral valve is normal in structure. Mild mitral regurgitation. No evidence of mitral valve stenosis. Tricuspid Valve The tricuspid valve is normal in structure. Mild tricuspid regurgitation[place] [address] 2 D/M-MODE ECHOCARDIOGRAM Name: YOUSUFSOMMER Bullard Room: [facility]#: [id number] Admission: 04/22/20 Attend Phys: Alice Hart, Discharge: Date of : 33 Date of Service: 04/22/20 1419 Report #: [id number] The pulmonary valve is normal in structure. Mild pulmonic regurgitation. Great Vessels The aortic root is normal in size. IVC is normal in size and collapses >50% with inspiration. Pericardium There is no pericardial effusion. <Conclusion> Mild concentric left ventricular hypertrophy. LVEF is 55-60%. Mild aortic regurgitation. Mild mitral regurgitation. <ELECTRONICALLY SIGNED> By: Ermias Salcido MD, FACC 04/22/201418 18 18 Ermias Salcido MD, FACC /INF
== END ==
LOC: M.CRD 04-21 11:00
PROVIDERS: ATTEND Nurse Practitioner
DX: I08.8 Other rheumatic multiple valve diseases (principal)

== ENCOUNTER 2020-08-23 08:01 | Inpatient (IN) | payer MEDICARE ==
[~2020-08-23] VITALS: Ht 147.3 cm; Wt 60.8 kg
[2020-08-23 08:12] VITALS: BP 139/116
[2020-08-23] MEDS ORDERED: HYDROCHLOROTH12.5 M2 PO (08:18)
[2020-08-23] MEDS ORDERED: LISINOPRIL20 MG PO (08:18)
[2020-08-23] MEDS ORDERED: TOPROL XL100 MG PO (08:19)
[2020-08-23 08:20] LABS: URINE BILIRUBIN NEGATIVE (Negative); URINE BLOOD NEGATIVE (Negative); URINE CLARITY CLEAR; URINE COLOR YELLOW; URINE GLUCOSE-RANDOM NEGATIVE (Negative); URINE KETONES NEGATIVE (Negative); URINE LEUKOCYTES-REFLEX NEGATIVE (Negative); URINE NITRITE-REFLEX NEGATIVE (Negative); URINE PROTEIN NEGATIVE (Negative); URINE UROBILINOGEN 0.2 E.U./dl (0.2-1.0)
[2020-08-23 09:09] LABS: ABSOLUTE EOSINOPHILS 0.2 thou/uL (0.0-0.7); ABSOLUTE LYMPHOCYTES 1.4 thou/uL (0.8-5.3); ABSOLUTE MONOCYTES 0.3 thou/uL (0.0-1.2); ABSOLUTE NEUTROPHILS 2.7 thou/uL (1.6-8.1); EOSINOPHILS 5.2 %; HEMOGLOBIN 13.1 gm/dL (12.0-15.0); LYMPHOCYTES 30.5 %; MCHC 33.6 g/dL (28.0-37.0); RDW-CV 13.4 % (10.5-14.5); WBC 4.7 thou/uL (4.0-11.0)
[2020-08-23 09:11] LABS: BASOPHILS 0.8 %; MCH 28.7 pg (26.0-34.0); MCV 85.5 fL (80.0-100.0); MONOCYTES 6.8 %; MPV 7.4 fl. (7.2-11.1); NUCLEATED RBCS 0 /100WBC; PLATELET COUNT* 185 thou/uL (150-400); POLYS 56.7 %; RBC 4.56 mil/uL (4.20-5.00)
[2020-08-23 09:16] LABS: CALCIUM 9.1 mg/dL (8.5-10.1); CREATININE 0.9 mg/dL (0.6-1.3); POTASSIUM 3.4 mmol/L (3.5-5.1)
[2020-08-23 09:20] LABS: ALBUMIN 3.5 g/dL (3.4-5.0); TOTAL BILIRUBIN 0.4 mg/dL (<0.1-1.0); TOTAL PROTEIN 7.9 g/dL (6.4-8.2)
[2020-08-23 13:24] VITALS: BP 142/69
[2020-08-23 13:57] VITALS: BP 172/63
--- NOTE | 2020-08-23 14:14 | NUR ---
PT ADMITTED WITH RIGHT HIP PAIN. PT ORIENTED TO ROOM. PAIN MEDS GIVEN ORDERED, PT CONCERNED IT MIGHT MAKE HER LOOPY. TOLD PT WE WOULD DO THE SMALLEST DOSE ORDERED AND CHECK ON HER TO MAKE SURE SHE FELT OK. FALL RISK PRECAUTIONS IN PLACE.
[2020-08-23 16:57] VITALS: BP 150/57
--- NOTE | 2020-08-23 17:01 | NUR ---
PT REMAINED ALERT AND ORIENTED. PT C/O MUSCLE SPASMS, MEDS GIVEN ORDERED. PHYSICIAN NOTIFIED OF PT PAIN, MUSCULE RELAXER ORDERED AND GIVEN. PT EDUCTAED ON USING CALL LIGHT WHEN NEEDING MORE PAIN MEDS. HOURLY ROUNDING COMPLETED.
[2020-08-23 20:45] VITALS: BP 142/60
[2020-08-24 05:06] LABS: CALCIUM 9.5 mg/dL (8.5-10.1); MAGNESIUM 2.2 mg/dL (1.8-2.4); POTASSIUM 3.9 mmol/L (3.5-5.1)
--- NOTE | 2020-08-24 06:53 | NUR ---
PATIENT HAS SLEPT WELL THROUGHOUT THE NIGHT. VSS ON RA. MEDICATIONS GIVEN ORDERED AND CHARTED. NO C/O PAIN. ASSESSMENT CHARTED. IV IN LEFT AC-SL. FALL PRECAUTIONS IN PLACE AND HOURLY ROUNDS MADE. WILL CONTINUE WITH PLAN OF CARE AND NURSING TO MONITOR.
[2020-08-24 08:24] VITALS: BP 160/76
--- NOTE | 2020-08-24 13:49 | EKG ---
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: : [id number] Requested By: Morteza Esquivel Order Number: [id number] MD: Chilango Flannery Measurements Intervals [place] Rate: 64 P: 52 DC: 192 QRS: -48 QRSD: 110 T: 83 QT: 433 QTc: 447 Interpretive Statements Sinus rhythm Left anterior hemiblock Probable left ventricular hypertrophy Compared to ECG 02/20/2020 18:03:45 no change noted Electronically Signed On 08-24-2020 13:49:01 TANK BUILDER AND ERECTOR by Chilango Flannery [email or web address] <ELECTRONICALLY SIGNED> By: Chilango Flannery MD, [facility] 08/24/20 1349 [id number] Chilango Flannery MD, [facility] /EPI
--- NOTE | 2020-08-24 15:02 | NUR ---
PT RESTING,NO COMPLAINTS AT THIS TIME. VSS ON RA. NOTHING FURTHER AT THIS TIME.CLWR.[email or web address].
[2020-08-24 16:24] VITALS: BP 138/81
--- NOTE | 2020-08-24 17:00 | NUR ---
VISITED WITH PT. SHE SAID SHE LIVES ALONE AND HAS SINCE HER 20 YRS AGO. SHE HAS SOME GOOD FRIENDS THAT WILL HELP HER NEEDED. 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 THEY TAKE HER ON ERRANDS, TO GET GROCERIES, ETC. SHE ALSO HAS FRIENDS THAT CAN COME HELP HER IF NEEDED. ANABEL PORTILLO AND MISS AMIN. HER STEPCHILDREN LIVE IN [facility] AND ONLY COME UP ABOUT ONCE A YEAR. THEY HAVE ASKED HER TO COME LIVE WITH THEM BUT SHE DOES NOT WANT TO BE A BURDEN ON THEM. SHE HAS A WALKER SHE USES. ALSO HAS A BSC. SHE PLANS TO RETURN HOME AT DISCHARGE AND WOULD BE INTERESTED IN HOMEHEALTH.
[2020-08-24 21:15] VITALS: BP 147/57
--- NOTE | 2020-08-25 05:08 | NUR ---
PT ALERT AND ORIENTED, ROOM AIR. NO REQUEST FOR ANY PAIN MEDICATION, NO REPORTS OF DISCOMFORT EXCEPT WHEN SHE MOVES SO SHE REMAINED BEDREST. SHE REPORTED THAT SHE DID HAVE A BM EARLIER THIS EVENING. SHE SAYS SHE WILL TRY TO STAY STILL, DID NOT WANT PAIN MEDICATION. SHE IS MOVING HER LEGS/EXTENDING THEM IN BED TO KEEP FROM LAYING STILL FOR TOO LONG. SHE IS A VERY ACTIVE PATIENT AND IS ATTEMPTING TO NOT NEED PAIN MEDICATION AT THIS TIME.
[2020-08-25 07:35] VITALS: BP 138/109
[2020-08-25 16:15] VITALS: BP 137/62
--- NOTE | 2020-08-25 16:42 | NUR ---
PT ROUNDS: PT HAS UNCONTROLLED PX AND IS HYPERTENSIVE.
--- NOTE | 2020-08-25 17:29 | NUR ---
PT REMAINED ALERT AND ORIENTED. PT RESTING IN BED. PAIN MEDS GIVEN ORDERED. PT UP STAND BY TO BATHROOM. FALL RISK PRECAUTIONS IN PLACE. HOURLY ROUNDING COMPLETED.
[2020-08-25 20:25] VITALS: BP 151/48
--- NOTE | 2020-08-26 05:10 | NUR ---
PT ALERT AND ORIENTED, STANDBY TO RESTROOM. SHE REQUESTED NO PAIN MEDS, REPORTED NO DISCOMFORT. SHE HAS DONE WELL OVERNIGHT. UP MOVING AROUND WELL.
[2020-08-26] MEDS ORDERED: CELEBREX 200 M200 M1 PO (08:10)
[2020-08-26] MEDS ORDERED: PREDNISONE 20 M20 MG PO (08:10)
[2020-08-26] MEDS ORDERED: LIDOPATCH1 EACH TOP (08:10)
[2020-08-26 09:05] VITALS: BP 151/58
--- NOTE | 2020-08-26 09:05 | NUR ---
Pt discharging to home today. CM [facility]. Pt states that she will need to contact a neighbor to provide transport. No further needs.
[2020-08-26 10:12] VITALS: BP 151/58
--- NOTE | 2020-08-26 10:24 | NUR ---
THIS NURSE AGREES WITH ASSESSMENT
[2020-08-26 10:28] VITALS: BP 151/58
[2020-08-26 10:34] VITALS: BP 151/58
[2020-08-26 12:10] VITALS: BP 151/58
--- NOTE | 2020-08-26 14:03 | NUR ---
PT WAS DISCHARGED HOME WITH ALL BELONGINGS, ACCOMPANIED BY FRIEND. PT DENIES PAIN ON DISCHARGE. PT HAS A GOOD UNDERSTANDING OF ALL PAIN MEDICATIONS AND DISCHARGE ORDERS.
== END 2020-08-26 12:00 | disposition home health service (06) | DRG 552 ==
LOC: M.ERS 08:01 → M.TBA-ER 11:38 → M.3W 13:26
PROVIDERS: Emergency Medicine Emergency Medical Services; Internal Medicine; ADMIT Family Medicine; ATTEND Family Medicine
DX: M54.16 Radiculopathy, lumbar region (principal); M48.55XA Collapsed vertebra, not elsewhere classified, thoracolumbar region, initial encounter for fracture; G89.29 Other chronic pain; M47.816 Spondylosis without myelopathy or radiculopathy, lumbar region; E87.6 Hypokalemia; I10 Essential (primary) hypertension; I48.91 Unspecified atrial fibrillation; M81.0 Age-related osteoporosis without current pathological fracture; Z20.822 Contact with and (suspected) exposure to COVID-19; Z79.899 Other long term (current) drug therapy; Z88.0 Allergy status to penicillin; Z88.5 Allergy status to narcotic agent; Z90.11 Acquired absence of right breast and nipple; Z90.710 Acquired absence of both cervix and uterus; Z90.49 Acquired absence of other specified parts of digestive tract

== ENCOUNTER 2020-10-10 20:49 | Inpatient (IN) | payer MEDICARE ==
[~2020-10-10] VITALS: Ht 147.3 cm; Wt 54.4 kg
[~2020-10-10 20:49] MED LIST changes: +CELEBREX 200 M200 M1 PO; +DOXYCYCLINE 10100 M2 PO; +HYDROCHLOROTH12.5 M2 PO; +LIDOPATCH1 EACH TOP; +PREDNISONE 20 M20 MG PO; +TOPROL XL100 MG PO
[2020-10-10] MEDS ORDERED: FISH OIL 1,0001 EAC9 PO (21:05)
[2020-10-10 21:44] LABS: ABSOLUTE EOSINOPHILS 0.3 thou/uL (0.0-0.7); ABSOLUTE LYMPHOCYTES 2.1 thou/uL (0.8-5.3); ABSOLUTE MONOCYTES 0.7 thou/uL (0.0-1.2); BASOPHILS 0.4 %; EOSINOPHILS 3.2 %; HEMOGLOBIN 13.6 gm/dL (12.0-15.0); LYMPHOCYTES 25.9 %; MCH 28.6 pg (26.0-34.0); MCHC 33.1 g/dL (28.0-37.0); MCV 86.4 fL (80.0-100.0); MONOCYTES 8.1 %; MPV 7.6 fl. (7.2-11.1); NUCLEATED RBCS 0 /100WBC; PLATELET COUNT* 222 thou/uL (150-400); POLYS 62.4 %; RBC 4.75 mil/uL (4.20-5.00); RDW-CV 13.4 % (10.5-14.5); WBC 8.1 thou/uL (4.0-11.0)
[2020-10-10 21:51] LABS: CALCIUM 9.3 mg/dL (8.5-10.1); CREATININE 0.8 mg/dL (0.6-1.3); POTASSIUM 3.3 mmol/L (3.5-5.1)
[2020-10-10 21:55] LABS: ALBUMIN 3.6 g/dL (3.4-5.0); TOTAL BILIRUBIN 0.3 mg/dL (<0.1-1.0); TOTAL PROTEIN 7.9 g/dL (6.4-8.2)
[2020-10-10 22:10] VITALS: BP 163/89
[2020-10-10 22:45] VITALS: BP 151/61
--- NOTE | 2020-10-11 05:16 | NUR ---
PT ARRIVED TO THE UNIT FROM THE ER AT 2230. A&O X 4. VSS ON RA. PT USES CANE, UP TO THE BR WITH SBA. FALL PRECAUTION IN PLACE. LLE RED, SWOLLEN, WARM TO TOUCH. HYDROCODONE GIVEN FOR PAIN. IV ABX GIVEN ORDERED. IVF INFUISING. CALL LIGHT WITHIN REACH. WILL CONTINUE TO MONITOR.
[2020-10-11 12:09] VITALS: BP 114/75
[2020-10-11 16:27] VITALS: BP 141/67
--- NOTE | 2020-10-11 18:44 | NUR ---
PT A&Ox4. VITALS STABLE. IV PATENT. TOLERATING MEALS. UP WITH STB ASSIST USING CANE. ON RA. MINIMAL PAIN TO LEFT LEG, DENIED PAIN MEDS. DENIED NAUSEA. FALL PRECAUTIONS IN PLACE. CALL LIGHT WITHIN REACH. WILL CONTINUE TO MONITOR.
[2020-10-11 19:40] VITALS: BP 166/72
[2020-10-12 04:16] LABS: ABSOLUTE EOSINOPHILS 0.3 thou/uL (0.0-0.7); ABSOLUTE LYMPHOCYTES 2.3 thou/uL (0.8-5.3); ABSOLUTE MONOCYTES 0.5 thou/uL (0.0-1.2); ABSOLUTE NEUTROPHILS 3.2 thou/uL (1.6-8.1); BASOPHILS 0.7 %; EOSINOPHILS 4.2 %; HEMATOCRIT 37.4 % (37.0-47.0); HEMOGLOBIN 12.6 gm/dL (12.0-15.0); LYMPHOCYTES 36.7 %; MCH 28.8 pg (26.0-34.0); MCHC 33.8 g/dL (28.0-37.0); MCV 85.3 fL (80.0-100.0); MONOCYTES 8.2 %; MPV 8.3 fl. (7.2-11.1); NUCLEATED RBCS 0 /100WBC; PLATELET COUNT* 193 thou/uL (150-400); POLYS 50.2 %; RBC 4.39 mil/uL (4.20-5.00); RDW-CV 13.8 % (10.5-14.5); WBC 6.4 thou/uL (4.0-11.0)
[2020-10-12 04:47] LABS: CREATININE 0.8 mg/dL (0.6-1.3); POTASSIUM 3.1 mmol/L (3.5-5.1)
[2020-10-12 04:48] LABS: CALCIUM 9.2 mg/dL (8.5-10.1)
--- NOTE | 2020-10-12 05:50 | NUR ---
PATIENT HAS REMAINED ALERT AND ORIENTED X 4 THROUGHOUT THE SHIFT AND RESTING QUIETLY ON HOURLY ROUNDS. UP TO BR WITH CANE, CGA. LLE WOUND CURRENTLY OPEN TO AIR. DRESSING ON SKIN TOO PAINFUL. MEDICATED X 1 FOR PAIN TO GOOD EFFECT. SLIGHT OOZING AND SLOUGHING OF SKIN NOTED. PATIENT REQUESTED NASAL SPRAY AND BENADRYL AT HS FOR STUFFY NOSE. PHYSICIAN MADE AWARE AND MEDS ORDERED AND PROVIDED. FALL PRECAUTIONS IN PLACE. CONTINUE TO MONITOR.
[2020-10-12 08:12] VITALS: BP 159/68
[2020-10-12 09:00] VITALS: BP 159/68
--- NOTE | 2020-10-12 09:39 | NUR ---
WOUND NURSE: PATIENT SEEN TO ADDRESS TRAUMATIC WOUND ON THE LEFT LATERAL LOWER LEG MEASURING 0.6 X 0.5 X 0,4 CM WITH 0.2 CM UNDERMINING FROM 12 TO 12 O'CLOCK. CONTAINS RED, NONGRANLATING TISSUE IN THE WOUND BED. THERE IS A SMALL AMOUNT OF PINK [place]QUE DRAINAGE AND SLIGHT PERIWOUND REDNESS ALONG WITH INDURATION. WOUND IS TENDER TO TOUCH. CLEANSED WITH SALINE AND GAUZE. PLACED A WICK INTO WOUND USING AQUACEL AG, THEN COVERD WITH ADDITIONAL SQUARE OF AQUACEL AG UNDER A BORDERED FOAM DRESSING. PLAN TO CHANGE DRESSING EVERY OTHER DAY AND PRN. PATIENT SCHEDULED TO BE SEEN BY DR. JAMIR COTTER ON THURSDAY 10/19 AT 10AM. PATIENT REPORTS SHE LIVES IN [place] AND HER ASSOCIATE PROFESSOR OF ART HISTORY IS ABLE TO BRING HER. PATIENT REPORTING THAT SHE FELL ON 10/01 INTO HER FLOWER BED WHRE A PLANT INJURED HER LEG (YUCCA PLANT).
[2020-10-12 10:03] VITALS: BP 159/68
--- NOTE | 2020-10-12 13:14 | NUR ---
THIS NURSE AGREES WITH ASSESSMENT
--- NOTE | 2020-10-12 13:46 | NUR ---
Pt is A&O. Resides at home alone. Independent. Pt uses a walker for mobility. Pt has a shower chair. Supportive friends and neighbors that check on her and provide transportation. Hx of [facility]. No hx of SNF. Goal is home at dc, Pt wanting ANA CM to fax initial referral to [facility]. Anticipate dc tomorrow, wound care to see today. Surgery consult pending. [facility] f:[phone]
[2020-10-12 17:09] VITALS: BP 149/69
--- NOTE | 2020-10-12 17:11 | NUR ---
PATIENT RESTING IN BED. ABSCESS TO LEFT LOWER LEG WITH REDNESS AND SWELLING OPEN TO AIR. BRUISING TO NECK. SALINE LOCK TO LEFT FOREARM, PATENT, DRESSING C/D/I. C/O OF BACK PAIN, LIDOCAINE PATCH PLACED. NO QUESTIONS OR CONCERNS VOICED. WILL CONTINUE TO MONITOR.
[2020-10-12 20:00] VITALS: BP 129/69
[2020-10-13 04:18] LABS: CREATININE 0.7 mg/dL (0.6-1.3); POTASSIUM 3.5 mmol/L (3.5-5.1); TOTAL BILIRUBIN 0.3 mg/dL (<0.1-1.0)
--- NOTE | 2020-10-13 04:39 | NUR ---
VSS ON RA. MEDS GIVEN ORDERED. DRESSING TO LLE C/D/I. UP TO THE BR WITH CANE WITH SBA. NO C/O PAIN. PT SLEPT MOST OF THE NIGHT. CALL LIGHT WITHIN REACH. WILL CONTINUE TO MONITOR.
[2020-10-13 04:42] LABS: ABSOLUTE EOSINOPHILS 0.3 thou/uL (0.0-0.7); ABSOLUTE LYMPHOCYTES 2.4 thou/uL (0.8-5.3); ABSOLUTE MONOCYTES 0.5 thou/uL (0.0-1.2); ABSOLUTE NEUTROPHILS 3.9 thou/uL (1.6-8.1); BASOPHILS 0.6 %; EOSINOPHILS 4.1 %; HEMATOCRIT 38.6 % (37.0-47.0); LYMPHOCYTES 33.8 %; MCHC 33.6 g/dL (28.0-37.0); MCV 86.2 fL (80.0-100.0); MONOCYTES 6.9 %; MPV 8.1 fl. (7.2-11.1); NUCLEATED RBCS 0 /100WBC; PLATELET COUNT* 205 thou/uL (150-400); POLYS 54.6 %; RBC 4.48 mil/uL (4.20-5.00); WBC 7.1 thou/uL (4.0-11.0)
[2020-10-13 09:00] VITALS: BP 167/67
[2020-10-13] MEDS ORDERED: CLEOCIN HCL300 MG PO (09:36)
[2020-10-13 10:21] VITALS: BP 159/68
--- NOTE | 2020-10-13 10:57 | NUR ---
THIS NURSE AGREES WITH ASSESSMENT
[2020-10-13 11:04] VITALS: BP 159/68
--- NOTE | 2020-10-13 11:58 | NUR ---
PATIENT DISCHARGED HOME. DISCHARGE INSTRUCTIONS REVIEWED WITH PATIENT, ACKNOWLEDGE SHE UNDERSTOOD AND HAD NO QUESTIONS. IV DC'D AT THIS TIME. COTTON AND BANDAID ON SITE, PATIENT TOLERATED WITHOUT DIFFICULTIES. FRIEND TO TAKE HER HOME. PATIENT WHEELCHAIRED TO WAITING CAR WITH PERSONAL BELONGINGS.
--- NOTE | 2020-10-13 12:23 | NUR ---
Pt discharged to home today, faxed HH orders to [facility]
== END 2020-10-13 11:38 | disposition home health service (06) | DRG 603 ==
LOC: M.ERS 20:49 → M.ORTHSURG 21:35 → M.TBA-ER 21:35 → M.ORTHSURG 22:20
PROVIDERS: Internal Medicine; Physician Assistant; ADMIT Internal Medicine; ATTEND Internal Medicine
DX: L03.116 Cellulitis of left lower limb (principal); S80.12XA Contusion of left lower leg, initial encounter; I48.91 Unspecified atrial fibrillation; G89.29 Other chronic pain; W18.39XA Other fall on same level, initial encounter; M19.90 Unspecified osteoarthritis, unspecified site; Z96.651 Presence of right artificial knee joint; Z20.822 Contact with and (suspected) exposure to COVID-19; Y92.89 Other specified places as the place of occurrence of the external cause; Y93.89 Activity, other specified; Y99.8 Other external cause status; Z90.11 Acquired absence of right breast and nipple; Z90.710 Acquired absence of both cervix and uterus; Z90.49 Acquired absence of other specified parts of digestive tract; Z79.899 Other long term (current) drug therapy; Z88.5 Allergy status to narcotic agent; Z88.0 Allergy status to penicillin

== ENCOUNTER → 2020-10-19 | Outpatient (CLI) | payer MEDICARE ==
[~2020-10-19] MED LIST changes: +CLEOCIN HCL300 MG PO; +FISH OIL 1,0001 EAC9 PO
== END ==
LOC: M.WC 09:39
PROVIDERS: ATTEND Surgery
DX: S81.802A Unspecified open wound, left lower leg, initial encounter (principal); T79.8XXA Other early complications of trauma, initial encounter; L03.116 Cellulitis of left lower limb; I87.2 Venous insufficiency (chronic) (peripheral); I48.91 Unspecified atrial fibrillation; K21.9 Gastro-esophageal reflux disease without esophagitis; M81.0 Age-related osteoporosis without current pathological fracture; Z87.891 Personal history of nicotine dependence; Z90.49 Acquired absence of other specified parts of digestive tract; X58.XXXA Exposure to other specified factors, initial encounter; Y93.89 Activity, other specified; Y92.096 Garden or yard of other non-institutional residence as the place of occurrence of the external cause; Y99.8 Other external cause status

== ENCOUNTER → 2020-10-26 | Outpatient (CLI) | payer MEDICARE | LOC: M.WC 09:17 | PROVIDERS: ATTEND Surgery | DX: S81.802D Unspecified open wound, left lower leg, subsequent encounter (principal); T79.8XXD Other early complications of trauma, subsequent encounter; L03.116 Cellulitis of left lower limb; I87.2 Venous insufficiency (chronic) (peripheral); I48.91 Unspecified atrial fibrillation; K21.9 Gastro-esophageal reflux disease without esophagitis; M81.0 Age-related osteoporosis without current pathological fracture; Z87.891 Personal history of nicotine dependence; Z90.49 Acquired absence of other specified parts of digestive tract; X58.XXXD Exposure to other specified factors, subsequent encounter ==

== ENCOUNTER → 2020-11-02 | Outpatient (CLI) | payer MEDICARE | LOC: M.WC 09:45 | PROVIDERS: ATTEND Surgery | DX: S81.802D Unspecified open wound, left lower leg, subsequent encounter (principal); T79.8XXD Other early complications of trauma, subsequent encounter; L03.116 Cellulitis of left lower limb; I87.2 Venous insufficiency (chronic) (peripheral); I48.91 Unspecified atrial fibrillation; K21.9 Gastro-esophageal reflux disease without esophagitis; M81.0 Age-related osteoporosis without current pathological fracture; Z87.891 Personal history of nicotine dependence; Z90.49 Acquired absence of other specified parts of digestive tract; X58.XXXD Exposure to other specified factors, subsequent encounter ==

== ENCOUNTER → 2020-11-09 | Outpatient (CLI) | payer MEDICARE | LOC: M.WC 09:49 | PROVIDERS: ATTEND Surgery | DX: S81.802D Unspecified open wound, left lower leg, subsequent encounter (principal); T79.8XXD Other early complications of trauma, subsequent encounter; L03.116 Cellulitis of left lower limb; I87.2 Venous insufficiency (chronic) (peripheral); I48.91 Unspecified atrial fibrillation; K21.9 Gastro-esophageal reflux disease without esophagitis; M81.0 Age-related osteoporosis without current pathological fracture; Z87.891 Personal history of nicotine dependence; X58.XXXD Exposure to other specified factors, subsequent encounter ==

== ENCOUNTER → 2020-11-16 | Outpatient (CLI) | payer MEDICARE | LOC: M.WC 08:47 | PROVIDERS: ATTEND Internal Medicine | DX: S81.802D Unspecified open wound, left lower leg, subsequent encounter (principal); T79.8XXD Other early complications of trauma, subsequent encounter; L03.116 Cellulitis of left lower limb; I87.2 Venous insufficiency (chronic) (peripheral); I48.91 Unspecified atrial fibrillation; K21.9 Gastro-esophageal reflux disease without esophagitis; M81.0 Age-related osteoporosis without current pathological fracture; Z87.891 Personal history of nicotine dependence; X58.XXXD Exposure to other specified factors, subsequent encounter ==

== ENCOUNTER → 2020-11-23 | Outpatient (CLI) | payer MEDICARE | LOC: M.WC 08:43 | PROVIDERS: ATTEND Internal Medicine | DX: S81.802D Unspecified open wound, left lower leg, subsequent encounter (principal); T79.8XXD Other early complications of trauma, subsequent encounter; L03.116 Cellulitis of left lower limb; I87.2 Venous insufficiency (chronic) (peripheral); I48.91 Unspecified atrial fibrillation; K21.9 Gastro-esophageal reflux disease without esophagitis; M81.0 Age-related osteoporosis without current pathological fracture; Z87.891 Personal history of nicotine dependence; X58.XXXD Exposure to other specified factors, subsequent encounter ==

== ENCOUNTER → 2020-12-01 | Outpatient (CLI) | payer MEDICARE | LOC: M.WC 09:26 | PROVIDERS: ATTEND Emergency Medicine Undersea and Hyperbaric Medicine | DX: S81.802D Unspecified open wound, left lower leg, subsequent encounter (principal); T79.8XXD Other early complications of trauma, subsequent encounter; L03.116 Cellulitis of left lower limb; I87.2 Venous insufficiency (chronic) (peripheral); I48.91 Unspecified atrial fibrillation; K21.9 Gastro-esophageal reflux disease without esophagitis; M81.0 Age-related osteoporosis without current pathological fracture; Z87.891 Personal history of nicotine dependence; X58.XXXD Exposure to other specified factors, subsequent encounter ==

== ENCOUNTER → 2020-12-07 | Outpatient (CLI) | payer MEDICARE | LOC: M.WC 09:26 | PROVIDERS: ATTEND Surgery | DX: S81.802D Unspecified open wound, left lower leg, subsequent encounter (principal); T79.8XXD Other early complications of trauma, subsequent encounter; L03.116 Cellulitis of left lower limb; I87.2 Venous insufficiency (chronic) (peripheral); I48.91 Unspecified atrial fibrillation; M81.0 Age-related osteoporosis without current pathological fracture; Z87.891 Personal history of nicotine dependence; X58.XXXD Exposure to other specified factors, subsequent encounter ==

== ENCOUNTER → 2021-01-26 | Outpatient (CLI) | payer MEDICARE | LOC: M.ULTRA 14:59 | PROVIDERS: ATTEND Family Medicine | DX: M79.5 Residual foreign body in soft tissue (principal); R60.9 Edema, unspecified ==

== ENCOUNTER → 2021-03-17 | Outpatient (CLI) | payer MEDICARE | LOC: M.WC 09:43 | PROVIDERS: ATTEND Surgery | DX: S81.802D Unspecified open wound, left lower leg, subsequent encounter (principal); T79.8XXD Other early complications of trauma, subsequent encounter; L97.222 Non-pressure chronic ulcer of left calf with fat layer exposed; L97.211 Non-pressure chronic ulcer of right calf limited to breakdown of skin; L03.116 Cellulitis of left lower limb; I87.2 Venous insufficiency (chronic) (peripheral); I48.91 Unspecified atrial fibrillation; M81.0 Age-related osteoporosis without current pathological fracture; Z90.49 Acquired absence of other specified parts of digestive tract; Z87.891 Personal history of nicotine dependence; X58.XXXD Exposure to other specified factors, subsequent encounter ==

== ENCOUNTER → 2021-03-24 | Outpatient (CLI) | payer MEDICARE | LOC: M.WC 09:30 | PROVIDERS: ATTEND Surgery | DX: L97.822 Non-pressure chronic ulcer of other part of left lower leg with fat layer exposed (principal); L97.211 Non-pressure chronic ulcer of right calf limited to breakdown of skin; I87.2 Venous insufficiency (chronic) (peripheral); I48.91 Unspecified atrial fibrillation; M81.0 Age-related osteoporosis without current pathological fracture; Z90.49 Acquired absence of other specified parts of digestive tract; Z87.891 Personal history of nicotine dependence; X58.XXXD Exposure to other specified factors, subsequent encounter ==

== ENCOUNTER → 2021-03-31 | Outpatient (CLI) | payer MEDICARE | LOC: M.WC 09:24 | PROVIDERS: ATTEND Surgery | DX: L97.822 Non-pressure chronic ulcer of other part of left lower leg with fat layer exposed (principal); L97.211 Non-pressure chronic ulcer of right calf limited to breakdown of skin; I87.2 Venous insufficiency (chronic) (peripheral); I48.91 Unspecified atrial fibrillation; M81.0 Age-related osteoporosis without current pathological fracture; Z90.49 Acquired absence of other specified parts of digestive tract; Z87.891 Personal history of nicotine dependence; X58.XXXD Exposure to other specified factors, subsequent encounter ==

== ENCOUNTER → 2021-04-21 | Outpatient (CLI) | payer MEDICARE | LOC: M.WC 08:57 | PROVIDERS: ATTEND Surgery | DX: L97.822 Non-pressure chronic ulcer of other part of left lower leg with fat layer exposed (principal); L97.211 Non-pressure chronic ulcer of right calf limited to breakdown of skin; I87.2 Venous insufficiency (chronic) (peripheral); I48.91 Unspecified atrial fibrillation; M81.0 Age-related osteoporosis without current pathological fracture; Z90.49 Acquired absence of other specified parts of digestive tract; Z87.891 Personal history of nicotine dependence; X58.XXXD Exposure to other specified factors, subsequent encounter ==

== ENCOUNTER → 2021-05-06 | Outpatient (CLI) | payer MEDICARE | LOC: M.WC 08:30 | PROVIDERS: ATTEND Family Medicine | DX: I87.332 Chronic venous hypertension (idiopathic) with ulcer and inflammation of left lower extremity (principal); L97.822 Non-pressure chronic ulcer of other part of left lower leg with fat layer exposed; L02.416 Cutaneous abscess of left lower limb; I48.91 Unspecified atrial fibrillation; M81.0 Age-related osteoporosis without current pathological fracture; K58.9 Irritable bowel syndrome, unspecified; Z79.899 Other long term (current) drug therapy; Z87.891 Personal history of nicotine dependence ==

== ENCOUNTER → 2021-05-20 | Outpatient (CLI) | payer MEDICARE | LOC: M.WC 08:16 | PROVIDERS: ATTEND Family Medicine | DX: I87.332 Chronic venous hypertension (idiopathic) with ulcer and inflammation of left lower extremity (principal); L97.822 Non-pressure chronic ulcer of other part of left lower leg with fat layer exposed; L02.416 Cutaneous abscess of left lower limb; I48.91 Unspecified atrial fibrillation; M81.0 Age-related osteoporosis without current pathological fracture; K58.9 Irritable bowel syndrome, unspecified; Z87.891 Personal history of nicotine dependence ==

== ENCOUNTER → 2021-06-03 | Outpatient (CLI) | payer MEDICARE | LOC: M.WC 09:20 | PROVIDERS: ATTEND Family Medicine | DX: I87.332 Chronic venous hypertension (idiopathic) with ulcer and inflammation of left lower extremity (principal); L97.822 Non-pressure chronic ulcer of other part of left lower leg with fat layer exposed; L02.416 Cutaneous abscess of left lower limb; I48.91 Unspecified atrial fibrillation; M81.0 Age-related osteoporosis without current pathological fracture; K58.9 Irritable bowel syndrome, unspecified; Z87.891 Personal history of nicotine dependence; Z79.899 Other long term (current) drug therapy ==

== ENCOUNTER → 2021-06-10 | Outpatient (CLI) | payer MEDICARE | LOC: M.WC 08:43 | PROVIDERS: ATTEND Family Medicine | DX: I87.332 Chronic venous hypertension (idiopathic) with ulcer and inflammation of left lower extremity (principal); L97.822 Non-pressure chronic ulcer of other part of left lower leg with fat layer exposed; L02.416 Cutaneous abscess of left lower limb; I48.91 Unspecified atrial fibrillation; M81.0 Age-related osteoporosis without current pathological fracture; K58.9 Irritable bowel syndrome, unspecified; Z87.891 Personal history of nicotine dependence ==

== ENCOUNTER → 2021-06-17 | Outpatient (CLI) | payer MEDICARE | LOC: M.WC 09:42 | PROVIDERS: ATTEND Family Medicine | DX: L02.416 Cutaneous abscess of left lower limb (principal); I87.332 Chronic venous hypertension (idiopathic) with ulcer and inflammation of left lower extremity; L97.822 Non-pressure chronic ulcer of other part of left lower leg with fat layer exposed; S80.852D Superficial foreign body, left lower leg, subsequent encounter; I48.91 Unspecified atrial fibrillation; K21.9 Gastro-esophageal reflux disease without esophagitis; M81.0 Age-related osteoporosis without current pathological fracture; Z90.49 Acquired absence of other specified parts of digestive tract; X58.XXXD Exposure to other specified factors, subsequent encounter ==

== ENCOUNTER → 2021-07-08 | Outpatient (CLI) | payer MEDICARE ==
[2021-07-08 11:24] LABS: CREATININE 0.8 mg/dL (0.6-1.3)
== END ==
LOC: M.WC 10:00
PROVIDERS: ATTEND Family Medicine
DX: I87.332 Chronic venous hypertension (idiopathic) with ulcer and inflammation of left lower extremity (principal); L97.822 Non-pressure chronic ulcer of other part of left lower leg with fat layer exposed; L02.416 Cutaneous abscess of left lower limb; I48.91 Unspecified atrial fibrillation; M85.89 Other specified disorders of bone density and structure, multiple sites; K58.9 Irritable bowel syndrome, unspecified; Z87.891 Personal history of nicotine dependence

== ENCOUNTER → 2021-07-15 | Outpatient (CLI) | payer MEDICARE | LOC: M.WC 07-12 10:00 | PROVIDERS: ATTEND Family Medicine | DX: I87.332 Chronic venous hypertension (idiopathic) with ulcer and inflammation of left lower extremity (principal); L97.822 Non-pressure chronic ulcer of other part of left lower leg with fat layer exposed; L02.416 Cutaneous abscess of left lower limb; I48.91 Unspecified atrial fibrillation; M81.0 Age-related osteoporosis without current pathological fracture; K58.9 Irritable bowel syndrome, unspecified; Z87.891 Personal history of nicotine dependence ==

== ENCOUNTER → 2021-07-22 | Outpatient (CLI) | payer MEDICARE | LOC: M.WC 09:44 | PROVIDERS: ATTEND Family Medicine | DX: I87.332 Chronic venous hypertension (idiopathic) with ulcer and inflammation of left lower extremity (principal); L97.822 Non-pressure chronic ulcer of other part of left lower leg with fat layer exposed; L02.416 Cutaneous abscess of left lower limb; I48.91 Unspecified atrial fibrillation; K21.9 Gastro-esophageal reflux disease without esophagitis; M81.0 Age-related osteoporosis without current pathological fracture; K58.9 Irritable bowel syndrome, unspecified; Z87.891 Personal history of nicotine dependence ==

== ENCOUNTER → 2021-07-29 | Outpatient (CLI) | payer MEDICARE | LOC: M.WC 09:24 | PROVIDERS: ATTEND Family Medicine | DX: I87.332 Chronic venous hypertension (idiopathic) with ulcer and inflammation of left lower extremity (principal); L97.822 Non-pressure chronic ulcer of other part of left lower leg with fat layer exposed; L02.416 Cutaneous abscess of left lower limb; I48.91 Unspecified atrial fibrillation; K21.9 Gastro-esophageal reflux disease without esophagitis; M81.0 Age-related osteoporosis without current pathological fracture; K58.9 Irritable bowel syndrome, unspecified; Z87.891 Personal history of nicotine dependence ==

== ENCOUNTER → 2021-08-27 | Outpatient (CLI) | payer MEDICARE | LOC: M.WC 10:00 | PROVIDERS: ATTEND Family Medicine | DX: I87.332 Chronic venous hypertension (idiopathic) with ulcer and inflammation of left lower extremity (principal); L97.822 Non-pressure chronic ulcer of other part of left lower leg with fat layer exposed; L02.416 Cutaneous abscess of left lower limb; I48.91 Unspecified atrial fibrillation; K21.9 Gastro-esophageal reflux disease without esophagitis; M81.0 Age-related osteoporosis without current pathological fracture; K58.9 Irritable bowel syndrome, unspecified; Z87.891 Personal history of nicotine dependence ==